=== PATIENT | male | born 1980 | race Caucasian/White ===

== ENCOUNTER 2017-11-24 22:12 | Emergency (ER) | payer SELFPAY ==
--- NOTE | 2017-11-24 23:40 | EDM.PDOC ---
ED HPI GENERAL MEDICAL PROBLEM - General Chief Complaint: ENT Problem Stated Complaint: TOOTH PAIN Time Seen by Provider: 11/24/17 22:25 Source of Information: Reports: Patient History Limitations: Reports: No Limitations - History of Present Illness INITIAL COMMENTS - FREE TEXT/NARRATIVE: The patient states that he has had a lower left toothache since Sunday night , 11/21/2017. The pain is made worse if he chews on his left side, although he has not noticed increased pain with either cold or hot food. He states that he ordinarily takes ibuprofen 4 tablets (800 mg) every a.m. for the pain, but since the toothache developed, he has been taking 3-4 tablets every 3-4 hours. He took a single left over Tylenol #3 last night, without any improvement in his symptoms. He states that his left mandible started to swell around 19:00 tonight, prompting his ED visit. No oral drainage. No recent fever. The patient does not have a PCP. Treatments [employer]CH[employer]ICIAN: Reports: Other (see below) Other Treatments [employer] TECHNICIAN: motrin Left Tooth/Teeth Pain Score (Numeric/FACES): 9 - Related Data Allergies Allergy/AdvReac Type Severity Reaction Status Date / Time No Known Allergies Allergy Verified 11/24/17 22:26 Home Meds: Home Meds Cetirizine [ZyrTEC] 10 mg PO DAILY 11/24/17 [History] FA/Lycopene/Lut/MV,Ca,Iron,Min [Centrum] 2 tab PO DAILY 11/24/17 [History] Ibuprofen [Motrin] 800 mg PO DAILY 11/24/17 [History] Past Medical History HEENT History: Reports: Allergic Rhinitis Oncologic (Cancer) History: Reports: Malignant Melanoma (sabrina believes) - Past Surgical History Musculoskeletal Surgical History: Reports: Other (See Below) (Right wrist ganglion cyst excision) Oncologic Surgical History: Reports: Other (See Below) (Melanoma excised from left side of neck) Social & Family History - Tobacco Use Tobacco Use Within Last Twelve Months: Snuff/Dip (1/2 can/day since 16 years old ) - Caffeine Use Caffeine Use: Reports: Coffee, Soda - Alcohol Use Alcohol Use History: Yes Alcohol Use Frequency: Socially - Recreational Drug Use Recreational Drug Use: No - Living Situation & Occupation Living situation: Reports: (), Alone 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) ED ROS ENT - Review of Systems Review Of Systems: See Below Constitutional: Reports: No Symptoms HEENT: Reports: Dental Pain Respiratory: Reports: No Symptoms Cardiovascular: Reports: No Symptoms Endocrine: Reports: No Symptoms GI/Abdominal: Reports: No Symptoms : Reports: No Symptoms Musculoskeletal: Reports: No Symptoms Skin: Reports: No Symptoms Neurological: Reports: No Symptoms Psychiatric: Reports: No Symptoms Hematologic/Lymphatic: Reports: No Symptoms Immunologic: Reports: No Symptoms ED EXAM, ENT - Physical Exam Exam: See Below Exam Limited By: No Limitations General Appearance: Alert, WD/WN, No Apparent Distress Eye Exam: Bilateral Eye: Normal Inspection Ears: Normal External Exam, Normal Canal, Hearing Grossly Normal, Normal TMs Nose: Normal Inspection, Normal Mucousa, No Blood Mouth/Throat: Normal Inspection, Normal Gums, Normal Lips, Normal Oropharynx, Other (Tooth #4 absent. Tooth #6 absent. Tooth #14 absent. Tooth #15 carious. Tooth #17 absent. Teeth #18, 19 (the teeth of concern) with crowns. Gingiva of tooth #27 significantly eroded.). No: Gum Swelling Head: Atraumatic, Normocephalic Neck: Normal Inspection, Supple, Non-Tender, Full Range of Motion. No: Lymphadenopathy (L), Lymphadenopathy (R) Course - Vital Signs Last Recorded V/S: Last Vital Signs Temp 36.2 C 11/24/17 22:36 Pulse 63 11/24/17 22:36 Resp 20 11/24/17 22:36 BP 159/100 H 11/24/17 22:36 Pulse Ox 98 11/24/17 22:36 - Re-Assessments/Exams Free Text/Narrative Re-Assessment/Exam: 11/24/17 23:34 While the patient's teeth do not appear to be in the best of shape, I do not see any sign of an acute infection, such as gingival swelling or pointing. Nevertheless, I will prescribe both penicillin (#40) and [place] (#20) for his pain. The patient prefers [facility]. We will provide him a list of local dentists, and I encouraged the patient to try to find one on Sunday. Departure - Departure Time of Disposition: 23:35 Disposition: Home, Self-Care 01 Condition: Fair Clinical Impression: Dentalgia - Discharge Information Instructions: Tooth Injuries, [id number] Referrals: PCP,None [Primary Care Provider] - Forms: ED Department Discharge Additional Instructions: You were seen in the emergency room for a lower left toothache. On examination, no obvious infection was seen, but it is still possible that you have an infection within a tooth. Take one tablet of the antibiotic penicillin every 6 hours, as prescribed. Finish the entire prescription unless told otherwise by a dentist. Take 3-4 tablets (600-800 mg) of [id number] ibuprofen every 8 hours, with food, as needed for dental pain. You may take 1-2 tablets of the narcotic pain reliever [place] up to every 6 hours , as needed for pain not relieved by ibuprofen. If you take [place], do not drive or operate heavy machinery for 10 hours afterwards. [place] will likely cause constipation, so consider taking a stool softener. You have been provided a list of local dentists. We recommend that you follow- up with a dentist at the next available appointment. If any other problems, please do not hesitate to return to the ER.
== END 2017-11-24 23:45 | disposition home or self-care (01) ==
LOC: JD.ED 22:12
DX: K08.89 Other specified disorders of teeth and supporting structures (principal); F17.290 Nicotine dependence, other tobacco product, uncomplicated; Z79.1 Long term (current) use of non-steroidal anti-inflammatories (NSAID); Z79.899 Other long term (current) drug therapy
CPT/HCPCS: 99283